=== PATIENT | female | born 1970 | race Caucasian/White ===

== ENCOUNTER 2017-07-04 10:29 | Outpatient (CLI) | payer OTHER | END 2017-07-04 10:46 | disposition home or self-care (01) | LOC: LAB 10:29 | DX: D72.828 Other elevated white blood cell count (principal); D75.1 Secondary polycythemia; D68.59 Other primary thrombophilia; E28.2 Polycystic ovarian syndrome; D50.8 Other iron deficiency anemias; D51.8 Other vitamin B12 deficiency anemias; I10 Essential (primary) hypertension; D55.0 Anemia due to glucose-6-phosphate dehydrogenase [G6PD] deficiency; D51.0 Vitamin B12 deficiency anemia due to intrinsic factor deficiency; D51.1 Vitamin B12 deficiency anemia due to selective vitamin B12 malabsorption with proteinuria; E03.8 Other specified hypothyroidism; D68.8 Other specified coagulation defects; E06.3 Autoimmune thyroiditis ==

== ENCOUNTER 2017-08-18 08:16 | Outpatient (CLI) | payer OTHER | END 2017-08-18 10:31 | disposition home or self-care (01) | LOC: MAMO-SONO 08:16 | DX: D72.828 Other elevated white blood cell count (principal); D75.1 Secondary polycythemia; D68.69 Other thrombophilia; D68.59 Other primary thrombophilia; E28.2 Polycystic ovarian syndrome; E06.3 Autoimmune thyroiditis; E03.8 Other specified hypothyroidism; D28.2 Benign neoplasm of uterine tubes and ligaments; N60.11 Diffuse cystic mastopathy of right breast; N60.12 Diffuse cystic mastopathy of left breast; Z12.31 Encounter for screening mammogram for malignant neoplasm of breast ==